=== PATIENT | female | born 1935 | race Caucasian/White ===

== ENCOUNTER → 2022-01-14 | Outpatient (CLI) | payer MEDICARE, OTHER | LOC: KOH-I 15:05 | DX: M79.89 Other specified soft tissue disorders (principal) | CPT/HCPCS: 73620 ==

== ENCOUNTER → 2022-01-15 | Outpatient (CLI) | payer MEDICARE, OTHER | LOC: US 10:15 | DX: R09.89 Other specified symptoms and signs involving the circulatory and respiratory systems (principal); I70.90 Unspecified atherosclerosis; R93.6 Abnormal findings on diagnostic imaging of limbs | CPT/HCPCS: 93922; 93925 ==